=== PATIENT | female | born 1960 | race Caucasian/White ===

== ENCOUNTER 2022-08-16 10:58 | Outpatient (CLI) | payer OTHER, SELFPAY ==
[2022-08-16 15:24] LABS: Cholesterol* 194 mg/dL (90-199)
[2022-08-16 15:25] LABS: HDL Cholesterol* 44 mg/dL (>=50); LDL Cholesterol Calculated 133 mg/dL (<100); Triglycerides* 86 mg/dL (40-149)
[2022-08-16 16:07] LABS: Glucose* 92 mg/dL (60-115)
== END 2022-08-16 10:59 | disposition home or self-care (01) ==
PROVIDERS: Visit Provider Physician Assistant
DX: Z01.419 Encounter for gynecological examination (general) (routine) without abnormal findings (principal); Z13.1 Encounter for screening for diabetes mellitus; Z13.6 Encounter for screening for cardiovascular disorders
CPT/HCPCS: 80061; 82947; 87624; 88175

== ENCOUNTER 2022-08-23 09:49 | Outpatient (CLI) | payer OTHER, SELFPAY ==
[2022-08-23 14:02] LABS: Chloride* 103 mmol/L (96-114); Potassium* 4.3 mmol/L (3.6-5.1); Sodium* 142 mmol/L (135-149)
[2022-08-23 14:04] LABS: Bilirubin Total* 0.2 mg/dL (0.1-1.5); Creatinine* 0.8 mg/dL (0.5-1.5); Estimated Glomerular Filt Rate 85 ml/min
[2022-08-23 14:05] LABS: Alanine Aminotransferase* 21 U/L (4-35); Alkaline Phosphatase* 78 U/L (40-150); Aspartate Amino Transferase* 24 U/L (12-35); Blood Urea Nitrogen* 12 mg/dL (7-30); Calcium* 9.4 mg/dL (8.4-10.6); Carbon Dioxide* 29 mmol/L (20-32); Glucose* 92 mg/dL (60-115); Total Protein* 6.7 g/dL (6.0-8.3)
== END 2022-08-23 09:50 | disposition home or self-care (01) ==
PROVIDERS: PCP Physician Assistant Medical; Visit Provider Physician Assistant Medical
DX: E03.9 Hypothyroidism, unspecified (principal)
CPT/HCPCS: 80053; 84443

== ENCOUNTER 2022-09-07 09:02 | Outpatient (CLI) | payer OTHER, SELFPAY ==
--- NOTE | 2022-09-07 09:15 | CRLHL7_ITS ---
For Patients: As a result of the Century Cures Act, medical imaging exams and procedure reports are released immediately into your electronic medical record. You may view this report before your referring provider. If you have questions, please contact your health care provider. INDICATION: Pelvic bloating COMPARISON: none TECHNIQUE: 2D tyler scale and color Doppler images were acquired of the pelvis using a transabdominal and transvaginal approach. FINDINGS: Sonographic images demonstrate a normal size and smooth outer contour of the uterus. Uterus measures 7.9 cm in length by 3.7 cm in AP diameter by 5.4 cm in transverse dimension. Two fundal intramural fibroid measuring 2.0 x 1.9 x 2.1 cm and 0.8 x 0.8 x 1.0 cm. The endometrial lining measures 3 mm in composite thickness. The right ovary measures 2.4 x 1.2 x 1.4 cm in size and the left ovary measures 2.4 x 1.2 x 1.4 cm. The ovaries demonstrate normal arterial and venous blood flow on color Doppler analysis. There are no suspicious fluid collections within the cul-de-sac. IMPRESSION: Two uterine intramural fibroids measuring up to 2.1 cm. Normal ovaries. No adnexal mass or pelvic free fluid. Dictated by Trent Ag MD @ 09/07/2022 10:50:05 AM (Electronically Signed)
== END 2022-09-07 09:03 | disposition home or self-care (01) ==
LOC: US 09:02
PROVIDERS: PCP Physician Assistant Medical; Visit Provider Physician Assistant
DX: R14.0 Abdominal distension (gaseous) (principal); D25.1 Intramural leiomyoma of uterus
CPT/HCPCS: 76830; 76856

== ENCOUNTER 2023-01-15 09:24 | Outpatient (CLI) | payer OTHER, SELFPAY ==
--- NOTE | 2023-01-15 09:15 | CRLHL7_ITS ---
For Patients: As a result of the Century Cures Act, medical imaging exams and procedure reports are released immediately into your electronic medical record. You may view this report before your referring provider. If you have questions, please contact your health care provider. BILATERAL SCREENING MAMMOGRAM WITH COMPUTER-AIDED DETECTION TECHNIQUE: CC and MLO views were obtained. These mammographic images have been obtained using full-field digital technique. These mammographic images were interpreted with the benefit of computer-aided detection. COMPARISON FILM: 07/10/21, 01/01/19, 12/05/17. FINDINGS: There are scattered areas of fibroglandular density IMPRESSION: There is no radiographic evidence for malignancy. ASSESSMENT: BI-RADS Category 1: Negative RECOMMENDATION: Routine screening mammogram in 1 year. A lay language report of this examination will be provided to the patient. Elke Felix M.D. Diagnostic/Breast Radiologist [email or web address]/moses Transcribed: 12:14 p.pedro lopes/Dictated by: Elke Felix MD @ 01/15/2023 10:38:00 AM (Electronically Signed)
== END 2023-01-15 09:25 | disposition home or self-care (01) ==
LOC: MAMMO 09:25
PROVIDERS: PCP Physician Assistant Medical; Visit Provider Physician Assistant
DX: Z12.31 Encounter for screening mammogram for malignant neoplasm of breast (principal)
CPT/HCPCS: 77067

== ENCOUNTER 2024-01-16 10:31 | Outpatient (CLI) | payer OTHER, SELFPAY | END 2024-01-16 10:32 | disposition home or self-care (01) | PROVIDERS: PCP Physician Assistant Medical; Visit Provider Physician Assistant Medical | DX: Z00.00 Encounter for general adult medical examination without abnormal findings (principal); N30.00 Acute cystitis without hematuria; R63.5 Abnormal weight gain; F32.A Depression, unspecified; Z13.6 Encounter for screening for cardiovascular disorders | CPT/HCPCS: 80053; 80061; 84443; 87086 ==

== ENCOUNTER 2024-01-17 10:07 | Outpatient (CLI) | payer OTHER, SELFPAY ==
--- NOTE | 2024-01-17 10:15 | MM_ITS ---
Patient: MARIAMA SOLOMON Facility:?[facility] Patient ID:?[id number] Site Patient ID:?[id number]. Site :?[id number] Study:?XRay-Breast Bilateral 3D W/CAD-01/17/2024 10:28:18 AM Ordering Physician:Chayo January Final Report: BILATERAL SCREENING MAMMOGRAM WITH COMPUTER-AIDED DETECTION AND TOMOSYNTHESIS TECHNIQUE: CC and MLO views were obtained. These mammographic images have been obtained using full-field digital technique. These mammographic images were interpreted with the benefit of computer-aided detection. Breast Tomosynthesis was used in this interpretation. COMPARISON FILM: 01/15/23, 07/10/21, 01/01/19. FINDINGS: The breasts are heterogeneously dense, which may obscure small masses. IMPRESSION: There is no radiographic evidence for malignancy. ASSESSMENT: BI-RADS Category 1: Negative RECOMMENDATION: Routine screening mammogram in 1 year. A lay language report of this examination will be provided to the patient. Trent Ag M.D. Diagnostic Radiologist [email or web address] DSM/sp R& Transcribed: 1:44 p.m. SP/Dictated by: Trent Ag MD @ 01/22/2024 11:11:00 AM Signed by:?Trent Ag MD @01/22/2024 3:07:18 PM (Electronic Signature)
== END 2024-01-17 10:08 | disposition home or self-care (01) ==
LOC: MAMMO 10:08
PROVIDERS: PCP Physician Assistant Medical; Visit Provider Physician Assistant
DX: Z12.31 Encounter for screening mammogram for malignant neoplasm of breast (principal); R92.2 Inconclusive mammogram
CPT/HCPCS: 77063; 77067

== ENCOUNTER 2024-08-25 07:00 | Outpatient (CLI) | payer OTHER, SELFPAY | END 2024-08-25 07:01 | disposition home or self-care (01) | LOC: NFLDREF 08-27 13:33 | PROVIDERS: PCP Physician Assistant Medical; Referring Provider Physician Assistant Medical; Visit Provider Physician Assistant Medical | DX: R19.7 Diarrhea, unspecified (principal); R53.83 Other fatigue; R10.9 Unspecified abdominal pain; R50.9 Fever, unspecified | CPT/HCPCS: 87493; 87505; 87507 ==

== ENCOUNTER 2025-01-21 10:58 | Outpatient (CLI) | payer OTHER, SELFPAY | END 2025-01-21 10:59 | disposition home or self-care (01) | LOC: LKVREF 11:05 | PROVIDERS: PCP Nurse Practitioner Family; Visit Provider Nurse Practitioner Family | DX: Z00.01 Encounter for general adult medical examination with abnormal findings (principal); R03.0 Elevated blood-pressure reading, without diagnosis of hypertension; R53.83 Other fatigue; E03.9 Hypothyroidism, unspecified; Z79.899 Other long term (current) drug therapy; Z13.6 Encounter for screening for cardiovascular disorders | CPT/HCPCS: 80053; 80061; 82306; 82607; 82728; 84443; 87493 ==

== ENCOUNTER 2025-04-07 10:28 | Outpatient (CLI) | payer OTHER, SELFPAY ==
--- NOTE | 2025-04-07 10:15 | CRLHL7_ITS ---
For Patients: As a result of the Century Cures Act, medical imaging exams and procedure reports are released immediately into your electronic medical record. You may view this report before your referring provider. If you have questions, please contact your health care provider. INDICATION: BILATERAL SCREENING MAMMOGRAM, ASYMPTOMATIC 64 Y/O FEMALE COMPARISON: 01/17/2024, 01/15/2023, 07/10/2021 TECHNIQUE: Digital mammogram in CC and MLO projections including computer-aided detection (CAD) and tomosynthesis. BREAST COMPOSITION: The breasts are heterogeneously dense, which may obscure small masses. FINDINGS: No suspicious findings. ASSESSMENT: BI-RADS 2 Benign RECOMMENDATION: Annual screening mammogram. A lay language report of this examination will be provided to the patient. Dictated by: Trent Ag MD @ 04/07/2025 11:08:54 (Electronically Signed)
== END 2025-04-07 10:29 | disposition home or self-care (01) ==
LOC: MAMMO 10:29
PROVIDERS: PCP Nurse Practitioner Family; Visit Provider Nurse Practitioner Family
DX: Z12.31 Encounter for screening mammogram for malignant neoplasm of breast (principal); R92.333 Mammographic heterogeneous density, bilateral breasts
CPT/HCPCS: 77063; 77067